=== PATIENT | female | born 1945 | race Caucasian/White ===

== ENCOUNTER 2016-10-27 13:02 | Outpatient (CLI) | payer MEDICARE, BC | END 2016-10-27 13:03 | disposition home or self-care (01) | DX: M85.89 Other specified disorders of bone density and structure, multiple sites (principal); N95.8 Other specified menopausal and perimenopausal disorders ==

== ENCOUNTER 2019-04-15 13:07 | Outpatient (CLI) | payer MEDICARE, BC ==
[2019-04-15 17:46] LABS: HGB - HEMOGLOBIN 12.4 g/dL (12.0-16.0); MEAN CORPUSCULAR HEMOGLOBIN 29.3 pg (27.0-31.0); MEAN CORPUSCULAR HGB CONC 32.4 g/dL (32.0-36.0); MEAN CORPUSCULAR VOLUME 90.5 fL (81.0-99.0); MEAN PLATELET VOLUME 9.1 fL (7.9-10.8); RED BLOOD COUNT 4.23 10^6/uL (4.20-5.40); RED CELL DISTRIBUTION WIDTH 13.3 % (12.0-15.0)
[2019-04-15 18:20] LABS: ALBUMIN 4.4 g/dL (3.2-5.5); ALBUMIN/GLOBULIN RATIO 1.4 (1.0-2.2); BILIRUBIN,TOTAL 0.5 mg/dL (0.2-1.0); CALCIUM 9.2 mg/dL (8.5-10.3); CREATININE 0.6 mg/dL (0.4-1.0); TOTAL PROTEIN 7.5 g/dL (6.7-8.2)
== END 2019-04-15 13:08 | disposition home or self-care (01) ==
LOC: LAB.S 13:07
PROVIDERS: ATTEND Dermatology
DX: L30.9 Dermatitis, unspecified (principal)
CPT/HCPCS: 36415; 80053; 85027

== ENCOUNTER 2019-06-28 08:13 | Outpatient (CLI) | payer MEDICARE, BC | END 2019-06-28 08:14 | disposition critical access hospital (66) | LOC: EMS 08:13 | PROVIDERS: ATTEND Surgery | DX: R51 Headache (principal); R11.0 Nausea | CPT/HCPCS: A0425; A0429 ==

== ENCOUNTER 2019-06-28 08:41 | Emergency (ER) | payer MEDICARE, BC ==
--- NOTE | 2019-06-28 09:23 | ED Physician Documentation ---
PD HPI HEADACHE - Stated complaint Stated Complaint: BLUE - Chief complaint Chief Complaint: Neuro - History obtained from History obtained from: Patient - History of Present Illness Timing - onset: Yesterday Timing - onset during: Light activity Timing - duration: Days (07/14) Timing - details: Gradual onset, Still present, Waxing and waning Worst headache ever?: No: Worst headache ever? (has pretty severe headache, but states she had had migraines when much younger and was of similar intensity.) Location: Left, Global Quality: Throbbing, Aching. No: Thunderclap Associated symptoms: Nausea, Vomiting. No: Fever, Stiff neck, Weakness, Eye pain, Vision changes (but light sensitive) Improved by: Dark room. No: Meds Worsened by: Light Contributing factors: Other (had cyclosporin started 2 weeks ago for skin rash and had dose increased from 1 bid to 1 in AM and 2 in PM. Dose increase was 4 days ago.). No: Anticoagulated, Recent illness, Trauma Recently seen: Clinic (4 days ago, seen by Senior Test Engineer, Dr. Graff in [place], and had med dose increased.) Review of Systems Constitutional: reports: Myalgias. denies: Fever, Chills Nose: denies: Rhinorrhea / runny nose, Congestion Throat: denies: Sore throat Respiratory: denies: Cough GI: reports: Nausea, Vomiting, Diarrhea. denies: Abdominal Pain, Constipation : denies: Dysuria Skin: reports: Rash (for couple of months, and seeing Derm about it. Was on Methotrexate first and now changed to Cyclosporin.) PD PAST MEDICAL HISTORY - Past Medical History Cardiovascular: Hypertension, Murmur Respiratory: None Neuro: Migraines Endocrine/Autoimmune: None GI: None Psych: Depression, Claustrophobia Musculoskeletal: Osteoarthritis Derm: Psoriasis - Past Surgical History Past Surgical History: Yes Ortho: Rotator cuff repair /PRACTICE MANAGEMENT CONSULTANT: Hysterectomy - Present Medications Home Medications: Ambulatory Orders Medication Instructions Recorded Confirmed Cholecalciferol [Vitamin D3] 2,000 unit PO DAILY 01/29/16 06/28/19 Furosemide [Lasix] 20 mg PO DAILY 01/29/16 06/28/19 Gluc Chan/Chondro Chan A/Vit C/Mn 1 cap PO DAILY 01/29/16 06/28/19 [Glucosamine-Chondroitin Cap] Multivitamin [Multivitamins] 1 tab PO DAILY 01/29/16 06/28/19 [place]-3 Fatty Acids [Fish Oil] 1,000 mg PO DAILY 01/29/16 06/28/19 Potassium Citrate [Potassium 10 meq PO DAILY 01/29/16 06/28/19 Citrate ER] Azelaic Acid 50 gm TP DAILY 06/28/19 06/28/19 Hydrocodone/Acetaminophen [[place] 1 each PO Q6H PRN #15 tablet 06/28/19 5-325 Tablet] Magnesium Oxide [Magnesium] 400 mg PO DAILY #30 capsule 06/28/19 Ondansetron Odt [Zofran] 4 mg TL Q6H PRN #15 tablet 06/28/19 dexAMETHasone [Decadron] 4 mg PO DAILY #5 tablet 06/28/19 - Allergies Allergies/Adverse Reactions: Allergies Allergy/AdvReac Type Severity Reaction Status Date / Time bethanechol [From Urecholine] Allergy Unknown Verified 06/28/19 09:17 clindamycin Allergy Unknown Verified 06/28/19 09:17 codeine Allergy Unknown Verified 06/28/19 09:17 doxycycline Allergy Unknown Verified 06/28/19 09:17 ibuprofen Allergy Unknown Verified 06/28/19 09:17 minocycline Allergy Unknown Verified 06/28/19 09:17 nitrofurantoin Allergy Unknown Verified 06/28/19 09:17 [From Macrobid] Penicillins Allergy Unknown Verified 06/28/19 09:17 Sulfa (Sulfonamide Allergy Unknown Verified 06/28/19 09:17 Antibiotics) - Social History Does the pt smoke?: No Smoking Status: Never smoker Does the pt drink ETOH?: No Does the pt have substance abuse?: No - Immunizations Immunizations are current?: Yes PD ED PE NORMAL - Vitals Vital signs reviewed: Yes - General General: Alert and oriented X 3, Well developed/nourished, Other (appears uncomfortable due to headache. ) - HEENT HEENT: Atraumatic, PERRL, EOMI (light sensitive), Pharynx benign, Dentition benign - Neck Neck: Supple, no meningeal sign, No adenopathy - Cardiac Cardiac: RRR, No murmur - Respiratory Respiratory: Clear bilaterally - Abdomen Abdomen: Soft, Non tender - Derm Derm: Normal color, Warm and dry - Extremities Extremities: No tenderness to palpate, Normal ROM s pain, No calf tenderness / cord, Other (1+ edema in both legs) - Neuro Neuro: Alert and oriented X 3, meat carver 2-12 intact, No motor deficit, No sensory deficit, Normal speech Eye Opening: Spontaneous Motor: Obeys Commands Verbal: Oriented GCS Score: 15 - Psych Psych: Normal mood Results - Vitals Vitals: Vital Signs - 24 hr 06/28/19 06/28/19 06/28/19 09:00 09:12 10:30 Temperature 36.1 C L 36.4 C L 36.4 C L Heart Rate 77 74 78 Respiratory 13 16 24 Rate Blood Pressure 184/83 H 177/88 H 199/97 H O2 Saturation 98 97 98 06/28/19 06/28/19 06/28/19 11:44 12:10 13:55 Temperature 37 C Heart Rate 84 85 95 Respiratory 18 16 14 Rate Blood Pressure 182/76 H 169/83 H 152/76 H O2 Saturation 97 94 97 Oxygen O2 Source Room air - Labs Labs: Laboratory Tests 06/28/19 06/28/19 06/28/19 10:05 10:05 10:05 WBC 7.3 RBC 4.42 Hgb 13.6 Hct 39.5 MCV 89.4 MCH 30.8 MCHC 34.4 RDW 12.8 Plt Count 363 MPV 8.8 Neut # (Auto) 6.2 Lymph # (Auto) 0.7 L [place] # (Auto) 0.4 Eos # (Auto) 0.0 Baso # (Auto) 0.0 Absolute Nucleated RBC 0.00 Nucleated RBC % 0.0 ESR 11 Sodium 134 L Potassium 3.6 Chloride 96 L Carbon Dioxide 27 Anion Gap 11.0 BUN 16 Creatinine 0.7 Estimated GFR (MDRD) 82 L Glucose 142 H Calcium 9.2 Magnesium 1.5 L Total Bilirubin 0.8 AST 25 ALT 23 Alkaline Phosphatase 49 Total Protein 7.7 Albumin 4.5 Globulin 3.2 Albumin/Globulin Ratio 1.4 Lipase 25 - Rads (name of study) head CT Radiology: Prelim report reviewed (normal head CT), See rad report PD MEDICAL DECISION MAKING - ED course Complexity details: re-evaluated patient (much improved and very comfortable now. ), considered differential (Referenced [facility] about med and Cyclosporin associated with headache as common side effect. Listed in Severe reactions included cerebral edema and posterior leukencephalopathy. Got head CT to evaluate for these and it was normal. Meanwhile given IV fluids and meds targeted at Migraine with considerable improvement (about half). Given some pain meds then too to get rest improved. ), d/w patient, d/w validation consultant (Dermatology household refrigeration mechanic for Dr. Graff, who suggested holding the Cyclosporin until discuss with Dr. Graff. ) Departure - Departure Disposition: 01 Home, Self Care Clinical Impression: Medication side effect, Hypomagnesemia Headache, acute Qualifiers: Headache type: unspecified Intractability: not intractable Qualified Code(s): R51 - Headache Condition: Stable Record reviewed to determine appropriate education?: Yes Instructions: ED Cephalgia Unspecified Follow-Up: Andressa Martinez PA [Primary Care Provider] - Julius Graff MD [Physician No Access] - Prescriptions: dexAMETHasone [Decadron] 4 mg PO DAILY #5 tablet Hydrocodone/Acetaminophen [[place] 5-325 Tablet] 1 each PO Q6H PRN #15 tablet PRN Reason: Pain Magnesium Oxide [Magnesium] 400 mg PO DAILY #30 capsule Ondansetron Odt [Zofran] 4 mg TL Q6H PRN #15 tablet PRN Reason: Nausea / Vomiting Comments: Stop the cyclosporine for now until you talk with Dr. Graff's office. Continue Decadron steroid daily for 5 more days. Stay well-hydrated. Tylenol if needed for headache or other pains. If you need stronger pain medicine, take the ondansetron for nausea about 15 minutes prior and then try the hydrocodone (Lortab) to help with the headache. I would anticipate not having much headache for more than a couple of days a the cyclosporine decreases from your system, assuming the headache was side-effect from that. Discharge Date/Time: 06/28/19 14:19
[2019-06-28] MEDS ORDERED: KETOROLAC 15 MG/ML VIAL IVP STA (09:50)
[2019-06-28] MEDS ORDERED: SODIUM CHLORIDE 0.9% 1,000 ML IV ONE (09:50)
[2019-06-28] MEDS ORDERED: DEXAMETHASONE 10 MG/ML VIAL IVP STA (09:50)
[2019-06-28] MEDS ORDERED: METOCLOPRAMIDE 10 MG/2 ML VIAL IVP STA (09:51)
[2019-06-28] MEDS ORDERED: diphenhydrAMINE INJ 50 MG/ML VIAL IVP STA (09:51)
[2019-06-28 10:22] LABS: BASOPHILS % (AUTO) 0.3 %; HGB - HEMOGLOBIN 13.6 g/dL (12.0-16.0); LYMPHOCYTES # (AUTO) 0.7 10^3/uL (1.5-3.5); LYMPHOCYTES % (AUTO) 9.7 %; MEAN CORPUSCULAR HEMOGLOBIN 30.8 pg (27.0-31.0); MEAN CORPUSCULAR HGB CONC 34.4 g/dL (32.0-36.0); MEAN CORPUSCULAR VOLUME 89.4 fL (81.0-99.0); MEAN PLATELET VOLUME 8.8 fL (7.9-10.8); MONOCYTES # (AUTO) 0.4 10^3/uL (0.0-1.0); MONOCYTES % (AUTO) 5.2 %; NEUTROPHILS # (AUTO) 6.2 10^3/uL (1.5-6.6); NEUTROPHILS % (AUTO) 84.4 %; PLT - PLATELET COUNT 363 10^3/uL (130-450); RED BLOOD COUNT 4.42 10^6/uL (4.20-5.40); RED CELL DISTRIBUTION WIDTH 12.8 % (12.0-15.0); WHITE BLOOD COUNT 7.3 x10^3/uL (4.8-10.8)
[2019-06-28 10:39] LABS: ALBUMIN 4.5 g/dL (3.2-5.5); ALBUMIN/GLOBULIN RATIO 1.4 (1.0-2.2); BILIRUBIN,TOTAL 0.8 mg/dL (0.2-1.0); CALCIUM 9.2 mg/dL (8.5-10.3); CREATININE 0.7 mg/dL (0.4-1.0); MAGNESIUM 1.5 mg/dL (1.7-2.8); TOTAL PROTEIN 7.7 g/dL (6.7-8.2)
--- NOTE | 2019-06-28 10:48 | CT Report ---
Reason: headache abrupt Procedure Date: 06/28/2019 Accession Number: [id number] / [id number] Procedure: CT - HEAD WO CPT Code: Final Report FULL RESULT: EXAM: CT HEAD EXAM DATE: 06/28/2019 10:14 AM. CLINICAL HISTORY: Headache abrupt. COMPARISON: None. TECHNIQUE: Multiaxial CT images were obtained from the foramen magnum to the vertex. Reformats: Sagittal and coronal. IV contrast: None. Mild streak artifact at skull base. In accordance with CT protocol optimization, one or more of the following dose reduction techniques were utilized for this exam: automated exposure control, adjustment of mA and/or KV based on patient size, or use of iterative reconstructive technique. FINDINGS: Parenchyma: No intraparenchymal hemorrhage. No evidence of mass, midline shift, or CT findings of infarction. [place]-white differentiation is distinct. Extraaxial Spaces: Normal for age. No subdural or epidural collections identified. Ventricles: Normal in size and position. Sinuses and Orbits: Imaged paranasal sinuses, orbits, and mastoids show no significant abnormality. Bones: No evidence of fracture or calvarial defect. Other: None. IMPRESSION: Normal head CT. RADIA
[2019-06-28] MEDS ORDERED: MAGNESIUM SULFATE 2 GRAM 2 GM/50 ML BAG IV ONE (11:35)
[2019-06-28] MEDS ORDERED: fentaNYL 100 MCG/2 ML VIAL IVP STA (12:34)
[2019-06-28] MEDS ORDERED: ACETAMINOPHEN 1,000 MG/100 ML 100 ML IV STA (12:34)
[2019-06-28 13:59] VITALS: BP 152/76
== END 2019-06-28 14:19 | disposition home or self-care (01) ==
LOC: EDUNIT# → ED 08:41
DX: G43.909 Migraine, unspecified, not intractable, without status migrainosus (principal); E83.42 Hypomagnesemia; T45.1X5A Adverse effect of antineoplastic and immunosuppressive drugs, initial encounter; I10 Essential (primary) hypertension
CPT/HCPCS: 36415; 70450; 80053; 83690; 83735; 85025; 85651; 96365; 96366; 96368; 96375; 99284; 99285; J0131; J1200; J2765

== ENCOUNTER 2019-08-24 13:22 | Outpatient (CLI) | payer MEDICARE, OTHER ==
--- NOTE | 2019-08-25 00:36 | XRAY Report ---
Reason: EDEMA OF LOWER EXTREMITY Procedure Date: 08/24/2019 Accession Number: [id number] / [id number] Procedure: XRS - Chest 2 View X-Ray CPT Code: 88535 Final Report FULL RESULT: EXAM: CHEST RADIOGRAPHY EXAM DATE: 08/24/2019 01:39 PM. CLINICAL HISTORY: EDEMA OF LOWER EXTREMITY. Localized edema and heart murmur. COMPARISON: None. TECHNIQUE: 2 views. FINDINGS: Lungs/Pleura: No focal opacities evident. No pleural effusion. No pneumothorax. Normal volumes. Mediastinum: Heart and mediastinal contours are unremarkable. Other: Left chest wall surgical clips. IMPRESSION: No acute cardiopulmonary disease seen. RADIA
== END 2019-08-24 13:23 | disposition home or self-care (01) ==
LOC: DI.S 13:22
PROVIDERS: ATTEND Physician Assistant
DX: R60.0 Localized edema (principal); R01.1 Cardiac murmur, unspecified
CPT/HCPCS: 71046

== ENCOUNTER 2019-09-07 12:41 | Outpatient (CLI) | payer MEDICARE, OTHER | END 2019-09-07 12:42 | disposition home or self-care (01) | LOC: DI 12:41 | PROVIDERS: ATTEND Physician Assistant | DX: R01.1 Cardiac murmur, unspecified (principal); R06.09 Other forms of dyspnea; I51.7 Cardiomegaly | CPT/HCPCS: 93005; 93306 ==

== ENCOUNTER 2020-06-12 11:06 | Outpatient (CLI) | payer MEDICARE, OTHER ==
[2020-06-12 16:11] LABS: ALBUMIN 4.4 g/dL (3.2-5.5); ALBUMIN/GLOBULIN RATIO 1.5 (1.0-2.2); BILIRUBIN,TOTAL 0.8 mg/dL (0.2-1.0); CALCIUM 9.7 mg/dL (8.5-10.3); CREATININE 0.6 mg/dL (0.4-1.0); TOTAL PROTEIN 7.4 g/dL (6.7-8.2)
== END 2020-06-12 11:07 | disposition home or self-care (01) ==
LOC: LAB.S 11:06
PROVIDERS: ATTEND Internal Medicine
DX: Z00.00 Encounter for general adult medical examination without abnormal findings (principal)
CPT/HCPCS: 36415; 80053; 85025

== ENCOUNTER 2020-06-18 07:38 | Outpatient (CLI) | payer MEDICARE, OTHER ==
[2020-06-18 15:14] LABS: BASOPHILS % (AUTO) 0.9 %; EOSINOPHILS # (AUTO) 0.1 10^3/uL (0.0-0.7); EOSINOPHILS % (AUTO) 2.8 %; LYMPHOCYTES # (AUTO) 1.2 10^3/uL (1.5-3.5); LYMPHOCYTES % (AUTO) 28.4 %; MEAN CORPUSCULAR HEMOGLOBIN 30.5 pg (27.0-31.0); MEAN CORPUSCULAR HGB CONC 33.5 g/dL (32.0-36.0); MEAN CORPUSCULAR VOLUME 91.1 fL (81.0-99.0); MEAN PLATELET VOLUME 9.1 fL (7.9-10.8); MONOCYTES # (AUTO) 0.7 10^3/uL (0.0-1.0); MONOCYTES % (AUTO) 15.6 %; NEUTROPHILS # (AUTO) 2.2 10^3/uL (1.5-6.6); NEUTROPHILS % (AUTO) 52.1 %; PLT - PLATELET COUNT 358 10^3/uL (130-450); RED BLOOD COUNT 4.26 10^6/uL (4.20-5.40); RED CELL DISTRIBUTION WIDTH 13.4 % (12.0-15.0); WHITE BLOOD COUNT 4.2 x10^3/uL (4.8-10.8)
== END 2020-06-18 07:39 | disposition home or self-care (01) ==
LOC: LAB.S 07:38
PROVIDERS: ATTEND Internal Medicine
DX: K90.0 Celiac disease (principal); I89.0 Lymphedema, not elsewhere classified; Z85.3 Personal history of malignant neoplasm of breast
CPT/HCPCS: 36415; 85025

== ENCOUNTER 2020-12-28 11:03 | Outpatient (CLI) | payer MEDICARE, OTHER ==
[2020-12-28 14:47] LABS: BASOPHILS % (AUTO) 0.6 %; EOSINOPHILS # (AUTO) 0.1 10^3/uL (0.0-0.7); EOSINOPHILS % (AUTO) 1.6 %; HCT - HEMATOCRIT 38.9 % (37.0-47.0); HGB - HEMOGLOBIN 12.9 g/dL (12.0-16.0); LYMPHOCYTES # (AUTO) 1.3 10^3/uL (1.5-3.5); LYMPHOCYTES % (AUTO) 20.2 %; MEAN CORPUSCULAR HEMOGLOBIN 30.5 pg (27.0-31.0); MEAN CORPUSCULAR HGB CONC 33.2 g/dL (32.0-36.0); MEAN PLATELET VOLUME 9.1 fL (7.9-10.8); MONOCYTES # (AUTO) 0.7 10^3/uL (0.0-1.0); MONOCYTES % (AUTO) 11.1 %; NEUTROPHILS # (AUTO) 4.2 10^3/uL (1.5-6.6); NEUTROPHILS % (AUTO) 66.2 %; PLT - PLATELET COUNT 322 10^3/uL (130-450); RED BLOOD COUNT 4.23 10^6/uL (4.20-5.40); WHITE BLOOD COUNT 6.3 x10^3/uL (4.8-10.8)
[2020-12-28 15:37] LABS: ALBUMIN 4.7 g/dL (3.2-5.5); ALBUMIN/GLOBULIN RATIO 1.7 (1.0-2.2); BILIRUBIN,TOTAL 0.7 mg/dL (0.2-1.0); CALCIUM 9.6 mg/dL (8.5-10.3); CREATININE 0.7 mg/dL (0.4-1.0); POTASSIUM 3.9 mmol/L (3.5-5.0); TOTAL PROTEIN 7.4 g/dL (6.7-8.2)
== END 2020-12-28 11:04 | disposition home or self-care (01) ==
LOC: LAB.S 11:03
PROVIDERS: ATTEND Internal Medicine
DX: R60.9 Edema, unspecified (principal); K90.0 Celiac disease
CPT/HCPCS: 36415; 80053; 85025

== ENCOUNTER 2021-04-05 07:46 | Outpatient (CLI) | payer MEDICARE, OTHER ==
[2021-04-05 14:33] LABS: BASOPHILS % (AUTO) 0.8 %; EOSINOPHILS # (AUTO) 0.1 10^3/uL (0.0-0.7); EOSINOPHILS % (AUTO) 2.1 %; HCT - HEMATOCRIT 40.2 % (37.0-47.0); HGB - HEMOGLOBIN 12.8 g/dL (12.0-16.0); LYMPHOCYTES # (AUTO) 1.2 10^3/uL (1.5-3.5); LYMPHOCYTES % (AUTO) 24.9 %; MEAN CORPUSCULAR HEMOGLOBIN 29.6 pg (27.0-31.0); MEAN CORPUSCULAR HGB CONC 31.8 g/dL (32.0-36.0); MEAN CORPUSCULAR VOLUME 92.8 fL (81.0-99.0); MONOCYTES # (AUTO) 0.7 10^3/uL (0.0-1.0); MONOCYTES % (AUTO) 14.6 %; NEUTROPHILS # (AUTO) 2.7 10^3/uL (1.5-6.6); NEUTROPHILS % (AUTO) 57.4 %; PLT - PLATELET COUNT 336 10^3/uL (130-450); RED BLOOD COUNT 4.33 10^6/uL (4.20-5.40); RED CELL DISTRIBUTION WIDTH 13.2 % (12.0-15.0); WHITE BLOOD COUNT 4.7 x10^3/uL (4.8-10.8)
[2021-04-05 14:49] LABS: ALBUMIN 4.3 g/dL (3.2-5.5); ALBUMIN/GLOBULIN RATIO 1.5 (1.0-2.2); ALKALINE PHOSPHATASE 55 IU/L (42-121); ALT ALANINE AMINOTRANSFERASE 24 IU/L (10-60); AST ASPARTATE AMINOTRANSFERASE 24 IU/L (10-42); BILIRUBIN,TOTAL 0.7 mg/dL (0.2-1.0); BUN - BLOOD UREA NITROGEN 11 mg/dL (6-20); CALCIUM 9.4 mg/dL (8.5-10.3); CARBON DIOXIDE - CO2 29 mmol/L (21-32); CHLORIDE 99 mmol/L (101-111); CHOL/HDL RATIO 2.1 (<4.4); CHOLESTEROL 196 mg/dL; CREATININE 0.7 mg/dL (0.4-1.0); GFR - MDRD 81 (>89); GLUCOSE 97 mg/dL (70-100); HDL CHOLESTEROL 93 mg/dL; SODIUM 138 mmol/L (135-145); TOTAL PROTEIN 7.2 g/dL (6.7-8.2); TRIGLYCERIDES 31 mg/dL
== END 2021-04-05 07:47 | disposition home or self-care (01) ==
LOC: LAB.S 07:46
PROVIDERS: ATTEND Internal Medicine
DX: E87.1 Hypo-osmolality and hyponatremia (principal); Z79.899 Other long term (current) drug therapy
CPT/HCPCS: 36415; 80053; 80061; 83721; 85025

== ENCOUNTER 2021-10-29 18:58 | Outpatient (CLI) | payer MEDICARE, OTHER | END 2021-10-29 18:59 | disposition short-term general hospital (02) | LOC: EMS 18:58 | DX: R10.13 Epigastric pain (principal); M54.9 Dorsalgia, unspecified; I49.9 Cardiac arrhythmia, unspecified | CPT/HCPCS: A0425; A0427 ==

== ENCOUNTER 2021-11-08 16:50 | Outpatient (CLI) | payer MEDICARE, OTHER ==
[2021-11-08 19:55] LABS: BASOPHILS # (AUTO) 0.1 10^3/uL (0.0-0.1); BASOPHILS % (AUTO) 0.8 %; EOSINOPHILS # (AUTO) 0.1 10^3/uL (0.0-0.7); EOSINOPHILS % (AUTO) 2.3 %; HCT - HEMATOCRIT 37.7 % (37.0-47.0); HGB - HEMOGLOBIN 12.7 g/dL (12.0-16.0); LYMPHOCYTES # (AUTO) 1.4 10^3/uL (1.5-3.5); LYMPHOCYTES % (AUTO) 23.6 %; MEAN CORPUSCULAR HEMOGLOBIN 30.5 pg (27.0-31.0); MEAN CORPUSCULAR HGB CONC 33.7 g/dL (32.0-36.0); MEAN CORPUSCULAR VOLUME 90.6 fL (81.0-99.0); MEAN PLATELET VOLUME 9.1 fL (7.9-10.8); MONOCYTES % (AUTO) 16.8 %; NEUTROPHILS # (AUTO) 3.4 10^3/uL (1.5-6.6); NEUTROPHILS % (AUTO) 56.3 %; PLT - PLATELET COUNT 381 10^3/uL (130-450); RED BLOOD COUNT 4.16 10^6/uL (4.20-5.40); RED CELL DISTRIBUTION WIDTH 12.9 % (12.0-15.0); WHITE BLOOD COUNT 6.1 x10^3/uL (4.8-10.8)
[2021-11-08 20:07] LABS: ALBUMIN 4.2 g/dL (3.2-5.5); ALBUMIN/GLOBULIN RATIO 1.5 (1.0-2.2); BILIRUBIN,TOTAL 0.3 mg/dL (0.2-1.0); CALCIUM 9.4 mg/dL (8.5-10.3); CREATININE 0.8 mg/dL (0.4-1.0); POTASSIUM 4.3 mmol/L (3.5-5.0)
== END 2021-11-08 16:51 | disposition home or self-care (01) ==
LOC: LAB.S 16:50
DX: R10.13 Epigastric pain (principal); R79.89 Other specified abnormal findings of blood chemistry
CPT/HCPCS: 36415; 80053; 82150; 83690; 85025

== ENCOUNTER 2021-11-26 10:47 | Outpatient (CLI) | payer MEDICARE, OTHER ==
--- NOTE | 2021-11-26 12:05 | DEXA Report ---
PROCEDURE: Dexa Spine and/or Hip INDICATIONS: OSTEOPENIA TECHNIQUE: Dual energy x-ray absorptiometry (DXA) was performed on a [employer] System. Regions measur ed are the AP Spine, femoral neck, and if needed forearm. COMPARISON: None. FINDINGS: Lumbar Spine: Bone Mineral Density 0.956 g/cm/cm,T score -1.9, osteopenia Left Hip: Bone Mineral Density 0.873 g/cm/cm,T score -1.1, osteopenia Left Femoral Neck: Bone Mineral Density 0.852 g/cm/cm, T score -1.3, osteopenia (T score greater or equal to -1.0: NORMAL) (T score from -1.1 to -2.4: OSTEOPENIA) (T score less than or equal to -2.5 to: OSTEOPOROSIS) Impression: Osteopenia Patients with diagnosis of osteoporosis or osteopenia should have regular bone mineral density assess ment. For those eligible for Medicare, routine testing is allowed once every 2 years. Testing frequ ency can be increased for patients who have rapidly progressing disease or for those who are receivin g medical therapy to restore bone mass. Reviewed by: Kirill Vieira on 11/26/2021 12:03 PM PDT Approved by: Kirill Vieira on 11/26/2021 12:03 PM PDT Station ID: [id number]
== END 2021-11-26 10:48 | disposition home or self-care (01) ==
LOC: DI 10:47
PROVIDERS: ATTEND Nurse Practitioner Family
DX: M85.89 Other specified disorders of bone density and structure, multiple sites (principal)

== ENCOUNTER 2023-09-10 12:54 | Outpatient (CLI) | payer MEDICARE, OTHER ==
[2023-09-10 15:21] LABS: BASOPHILS % (AUTO) 0.6 %; EOSINOPHILS # (AUTO) 0.1 10^3/uL (0.0-0.7); EOSINOPHILS % (AUTO) 0.8 %; HCT - HEMATOCRIT 38.9 % (37.0-47.0); HGB - HEMOGLOBIN 12.6 g/dL (12.0-16.0); LYMPHOCYTES # (AUTO) 1.3 10^3/uL (1.5-3.5); MEAN CORPUSCULAR HEMOGLOBIN 29.5 pg (27.0-31.0); MEAN CORPUSCULAR HGB CONC 32.4 g/dL (32.0-36.0); MEAN CORPUSCULAR VOLUME 91.1 fL (81.0-99.0); MEAN PLATELET VOLUME 9.2 fL (7.9-10.8); MONOCYTES # (AUTO) 0.8 10^3/uL (0.0-1.0); MONOCYTES % (AUTO) 12.5 %; NEUTROPHILS % (AUTO) 64.9 %; PLT - PLATELET COUNT 345 10^3/uL (130-450); RED BLOOD COUNT 4.27 10^6/uL (4.20-5.40); RED CELL DISTRIBUTION WIDTH 13.2 % (12.0-15.0); WHITE BLOOD COUNT 6.2 x10^3/uL (4.8-10.8)
[2023-09-10 15:54] LABS: ALBUMIN 4.6 g/dL (3.2-5.5); ALBUMIN/GLOBULIN RATIO 1.6 (1.0-2.2); ALKALINE PHOSPHATASE 52 IU/L (42-121); ALT ALANINE AMINOTRANSFERASE 18 IU/L (10-60); AST ASPARTATE AMINOTRANSFERASE 24 IU/L (10-42); BILIRUBIN,TOTAL 0.5 mg/dL (0.2-1.0); BUN - BLOOD UREA NITROGEN 18 mg/dL (6-20); CALCIUM 9.9 mg/dL (8.5-10.3); CARBON DIOXIDE - CO2 31 mmol/L (21-32); CHLORIDE 98 mmol/L (101-111); CHOL/HDL RATIO 2.1 (<4.4); CHOLESTEROL 187 mg/dL; CREATININE 0.8 mg/dL (0.6-1.3); GFR - MDRD 69 (>89); GLUCOSE 103 mg/dL (74-104); HDL CHOLESTEROL 88 mg/dL; LDL CHOLESTEROL,CALCULATED 88 mg/dL; SODIUM 134 mmol/L (135-145); TOTAL PROTEIN 7.5 g/dL (6.4-8.9); TRIGLYCERIDES 53 mg/dL (48-352); VLDL CHOLESTEROL 11 mg/dL
== END 2023-09-10 12:55 | disposition home or self-care (01) ==
LOC: LAB.S 12:54
PROVIDERS: ATTEND Internal Medicine
DX: I10 Essential (primary) hypertension (principal); E87.1 Hypo-osmolality and hyponatremia; Z13.220 Encounter for screening for lipoid disorders
CPT/HCPCS: 36415; 80053; 80061; 83721; 85025

== ENCOUNTER 2024-01-12 12:00 | Outpatient (CLI) | payer MEDICARE, OTHER ==
[2024-01-12 15:54] LABS: ALBUMIN 4.5 g/dL (3.2-5.5); ALBUMIN/GLOBULIN RATIO 1.6 (1.0-2.2); BILIRUBIN,TOTAL 0.4 mg/dL (0.2-1.0); CREATININE 0.7 mg/dL (0.6-1.3); POTASSIUM 3.6 mmol/L (3.5-4.5); TOTAL PROTEIN 7.3 g/dL (6.4-8.9)
== END 2024-01-12 12:01 | disposition home or self-care (01) ==
LOC: LAB.S 12:00
PROVIDERS: ATTEND Internal Medicine
DX: I10 Essential (primary) hypertension (principal); Z79.899 Other long term (current) drug therapy
CPT/HCPCS: 36415; 80053

== ENCOUNTER 2024-03-30 10:20 | Outpatient (CLI) | payer MEDICARE, OTHER ==
[2024-03-30 10:51] LABS: ALBUMIN 4.5 g/dL (3.2-5.5); ALBUMIN/GLOBULIN RATIO 1.7 (1.0-2.2); BILIRUBIN,TOTAL 0.6 mg/dL (0.2-1.0); CALCIUM 9.9 mg/dL (8.5-10.3); CREATININE 0.8 mg/dL (0.6-1.3); POTASSIUM 4.1 mmol/L (3.5-4.5); TOTAL PROTEIN 7.1 g/dL (6.4-8.9)
[2024-03-30 11:03] LABS: THYROID STIMULATING HORMONE 2.49 uIU/mL (0.34-5.60)
[2024-03-30 12:05] LABS: ESTIMATED AVERAGE GLUCOSE 108 mg/dL (70-100); HEMOGLOBIN A1c% 5.4 % (4.27-6.07)
== END 2024-03-30 10:21 | disposition home or self-care (01) ==
LOC: LAB 10:20
PROVIDERS: ATTEND Internal Medicine
DX: E87.1 Hypo-osmolality and hyponatremia (principal); R73.02 Impaired glucose tolerance (oral); Z79.899 Other long term (current) drug therapy
CPT/HCPCS: 36415; 80053; 83036; 84443